=== PATIENT | male | born 1950 | race American Indian/Alaskan Native ===

== ENCOUNTER 2018-03-26 02:05 | Emergency (ER) | payer MEDICARE, OTHER, SELFPAY ==
--- NOTE | 2018-03-26 07:27 | Cat Scan Report ---
FINAL REPORT EXAM: CT HEAD/BRAIN WO CON HISTORY: headache TECHNIQUE: CT imaging is acquired through the brain without contrast. Transaxial reformations are provided. PRIORS: None. FINDINGS: Ventricles and CSF spaces are within normal limits. Scattered deep and subcortical white matter hypodense foci are confluent in some areas and are compatible with microvascular angiopathy. No acute intracranial hemorrhage or mass effect. No skull fracture. No significant abnormality within the imaged paranasal sinuses or mastoid air cells. IMPRESSION: No acute intracranial abnormality. 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
--- NOTE | 2018-03-26 08:32 | Emergency Department Report ---
ED Headache HPI - General Chief Complaint: Headache Stated Complaint: HEADACHES Time Seen by Provider: 03/26/18 08:23 - History of Present Illness Initial Comments: 67-year-old male past medical history hypertension hyperlipidemia, BPH presents with complaint of intermittent headaches for 3 months. Patient states that last night he was experiencing waxing and waning headache. States he felt it on the upper part of his scalp. Denies any associated nausea vomiting fever chills blurry vision chest pain abdominal pain shortness of breath palpitations. Denies dysuria or hematuria or increased urinary frequency. Patient is awake alert and oriented 3 fully lucid and ambulatory. Accompanied by a family friend at bedside. Denies any alcohol smoking or drug use. Denies any recent head trauma. States that he has had headaches like this over the last 3 months intermittently and has seen other physicians for it at other facilities. States he has been arranging follow-up as an outpatient with neurology. Denies any upper or lower extremity paresthesias or weakness. Denies any facial paresthesias or weakness. Patient speaking in full sentences , no slurred speech. Patient denies any blurred vision temporal pain or recent head trauma. Denies any falls or recent involvement in any accidents. Denies any blurry vision. Denies any recent changes in eyewear. Timing/Duration: episodic, waxing and waning, other Quality: moderate Head Injury Location: parietal Recent Head Trauma: chronic headaches, occasional headaches Associated Symptoms: denies symptoms Allergies/Adverse Reactions: Allergies No Known Allergies Allergy (Unverified 12/09/13 13:56) Home Medications: Ambulatory Orders Acetaminophen [Acetaminophen TAB] 500 mg PO Q6HR PRN #20 tablet 03/26/18 Finasteride 5 mg PO DAILY 03/26/18 Losartan 100 mg PO DAILY 03/26/18 Metoprolol SUCCINATE ER TAB 50 mg PO DAILY 03/26/18 Simvastatin 20 mg PO HS 03/26/18 Tamsulosin 0.4 mg PO DAILY 03/26/18 ED Review of Systems ROS: Stated complaint: HEADACHES Other details as noted in HPI Constitutional: denies: chills, fever Eyes: denies: eye pain, eye discharge, vision change ENT: denies: ear pain, throat pain Respiratory: denies: cough, shortness of breath, wheezing Cardiovascular: denies: chest pain, palpitations Endocrine: no symptoms reported Gastrointestinal: denies: abdominal pain, nausea, diarrhea Genitourinary: denies: urgency, dysuria Musculoskeletal: denies: back pain, joint swelling, arthralgia Skin: denies: rash, lesions Neurological: denies: headache, weakness, paresthesias Psychiatric: denies: anxiety, depression Hematological/Lymphatic: denies: easy bleeding, easy bruising ED Past Medical Hx - Past Medical History Hx Hypertension: Yes Additional medical history: High Cholesterol, BPH - Surgical History Past Surgical History?: Yes Additional Surgical History: Abdominal Surgery - Social History Smoking Status: Never Smoker Substance Use Type: None - Medications Home Medications: Home Medications Medication Instructions Recorded Confirmed Last Taken Type Acetaminophen [Acetaminophen TAB] 500 mg PO Q6HR PRN #20 tablet 03/26/18 Unknown Rx Finasteride 5 mg PO DAILY 03/26/18 03/26/18 Unknown History Losartan 100 mg PO DAILY 03/26/18 03/26/18 Unknown History Metoprolol SUCCINATE ER TAB 50 mg PO DAILY 03/26/18 03/26/18 Unknown History Simvastatin 20 mg PO HS 03/26/18 03/26/18 Unknown History Tamsulosin 0.4 mg PO DAILY 03/26/18 03/26/18 Unknown History ED Physical Exam - General Limitations: No Limitations General appearance: alert, in no apparent distress - Head Head exam: Present: atraumatic, normocephalic - Eye Eye exam: Present: normal appearance, PERRL, EOMI Pupils: Present: normal accommodation - Expanded Eye Exam Expanded Pupils: Regular, Round: Bilateral Sclera/Conjunctival: Normal Inspection: Bilateral Visual acuity (R) = 20/: 20 Visual acuity (L) = 20/: 20 - ENT ENT exam: Present: mucous membranes moist - Neck Neck exam: Present: normal inspection, full ROM - Respiratory Respiratory exam: Present: normal lung sounds bilaterally. Absent: respiratory distress - Cardiovascular Cardiovascular Exam: Present: regular rate, normal rhythm. Absent: systolic murmur, diastolic murmur, rubs, gallop - GI/Abdominal GI/Abdominal exam: Present: soft, normal bowel sounds - Rectal Rectal exam: Present: deferred - Extremities Exam Extremities exam: Present: normal inspection - Back Exam Back exam: Present: normal inspection - Neurological Exam Neurological exam: Present: alert, oriented X3, CN II-XII intact, normal gait - Expanded Neurological Exam Expanded Patient oriented to: Present: person, place, time Speech: Present: fluid speech Cranial nerves: EOM's Intact: Normal, Facial Sensation: Normal Cerebellar function: Finger to Nose: Normal, Heel to Zarate: Normal, Romberg: Normal Sensory exam: Upper Extremity Light Touch: Normal, Lower Extremity Light Touch: Normal Motor strength exam: RUE: 5, LUE: 5, RLE: 5, LLE: 5 DTR: tricep (R): 3+, tricep (L): 3+, knee (R): 3+, knee (L): 3+ Best Eye Response (Avis): (4) open spontaneously Best Motor Response (Avis): (6) obeys commands Best Verbal Response (Avis): (5) oriented Falcon Total: 15 - Psychiatric Psychiatric exam: Present: normal affect, normal mood - Skin Skin exam: Present: warm, dry, intact, normal color. Absent: rash ED Course Vital Signs 03/26/18 03/26/18 03/26/18 04:30 06:07 06:22 Temperature 97.7 F Pulse Rate 74 77 77 Respiratory 16 Rate Blood Pressure 174/65 Blood Pressure 188/66 174/65 [Right] O2 Sat by Pulse 98 Oximetry 03/26/18 10:00 Temperature Pulse Rate 70 Respiratory Rate Blood Pressure 149/57 Blood Pressure [Right] O2 Sat by Pulse Oximetry ED Medical Decision Making - Medical Decision Making A/P: Acute on chronic headache 1- CT head noncontrast shows chronic microvascular changes no acute hemorrhage 2- case discussed with Dr. Hinds before discharge 3- patient experienced significant relief of headache with one dose of IV Reglan. Has no headache upon repeat examination. As per history provided by patient this headache has been intermittent waxing and waning for approximately 3 months. No clinical signs of meningitis. No nuchal rigidity, no photo or phonophobia. Cranial nerves 2, 3, 4, 5, 6, 7, 8,10, 11, 12 intact on clinical exam, patient is fully lucid awake alert and oriented 3 conversant. Denies any upper or lower extremity paresthesias and has 5/5 strength in bilateral upper and lower extremities on clinical exam. No clinical stroke symptoms. No temporal pain on palpation no blurry vision. No fever or chills reported. 4-patient's vital signs stable for discharge. Blood pressure within normal limits 5- I advised patient that he must follow up with his primary care physician and advised him that it is important to follow up with outpatient neurology. This patient has no clinical neurological deficits at time of examination in the ED it is reasonable for him to follow up as an outpatient Critical care attestation.: If time is entered above; I have spent that time in minutes in the direct care of this critically ill patient, excluding procedure time. ED Disposition Clinical Impression: Headache Qualifiers: Headache type: unspecified Headache chronicity pattern: acute headache Intractability: not intractable Qualified Code(s): R51 - Headache Disposition: DC-01 TO HOME OR SELFCARE Is pt being admited?: No Does the pt Need Aspirin: No Condition: Stable Instructions: Migraine Headache (ED), Acute Headache (ED) Prescriptions: Acetaminophen [Acetaminophen TAB] 500 mg PO Q6HR PRN #20 tablet PRN Reason: Headache Referrals: ALESSANDRA WERNER MD [Staff Physician] - 3-5 Days DOTTIE SOLIZ MD [Staff Physician] - 3-5 Days Forms: Accompanied Note Time of Disposition: 10:29
[2018-03-26] MEDS ORDERED: BENADRYL IV ONE (08:51)
[2018-03-26] MEDS ORDERED: REGLAN IV ONE (08:51)
[2018-03-26] MEDS ORDERED: COZAAR PO ONE (09:25)
[2018-03-26] MEDS ORDERED: LOPRESSOR PO ONE (09:25)
[2018-03-26] MEDS ORDERED: DIOVAN PO ONE (09:41)
[2018-03-26 10:02] VITALS: BP 149/57
== END 2018-03-26 11:10 | disposition home or self-care (01) ==
LOC: ED 02:05
DX: R51 Headache (principal); G89.29 Other chronic pain; I10 Essential (primary) hypertension; E78.00 Pure hypercholesterolemia, unspecified
CPT/HCPCS: 70450; 96374; 96375; 99284; J1200; J2765